=== PATIENT | male | born 1995 | race Caucasian/White ===

== ENCOUNTER 2024-01-31 01:20 | Emergency (ER) | payer OTHER, SELFPAY ==
[2024-01-31] VITALS (19 sets, daily range): BP systolic 100–147; BP diastolic 54–90; PULSE 90–119; RESP 6–23; TEMP 37.3; O2SAT 92–99; BMI 37.9
--- NOTE | 2024-01-31 01:35 | DI.RAD.S_ITS ---
PROCEDURE: XR CHEST 1V INDICATIONS: chest pain TECHNIQUE: One view of the chest was acquired. COMPARISON: None. FINDINGS: Surgical changes and devices: None. Lungs and pleura: Lungs are clear. No pleural effusions or pneumothorax. Mediastinum: Mediastinal contours appear normal. Heart size is normal. Bones and chest wall: No suspicious bony lesions. Overlying soft tissues appear unremarkable. IMPRESSION: No acute cardiopulmonary abnormality is seen. Dictated by: Mehdi Thomas M.D. on 01/31/2024 at 2:05 Approved by: Mehdi Thomas M.D. on 01/31/2024 at 2:05
--- NOTE | 2024-01-31 01:39 | EKG_ITS ---
[address] [address] Test Date: 2024-01-31 Pat Name: Harley Carranza Department: [facility] Room: Gender: Male [employer]: emanuel : 1995 Requested By: Order Number: [id number] Reading MD: Glenn Cortes MD Measurements Intervals [place] Rate: 118 P: 49 UT: 148 QRS: -1 QRSD: 80 T: 6 QT: 330 QTc: 462 Interpretive Statements Sinus tachycardia Minimal voltage criteria for LVH, may be normal variant ( R in aVL ) NO PRIOR TRACING Electronically Signed On 01-31-2024 7:45:45 PDT by Glenn Cortes MD
[2024-01-31 02:05] LABS: Add Manual Diff / Slide Review NO; Basophils Absolute Auto 100 /uL (0-100); Basophils Percent Auto 0.5 % (0-2); Eosinophils Absolute Auto 0 /uL (0-450); Eosinophils Percent Auto 0.3 % (2-4); Hemoglobin 14.4 g/dL (13.5-17.5); Lymphocytes Absolute Auto 2000 /uL (1100-4500); Lymphocytes Percent Auto 15.5 % (25-40); Mean Corpuscular HGB Conc 33.5 % (30-36); Mean Corpuscular Hemoglobin 30.8 PG (26-34); Monocytes Absolute Auto 900 /uL (0-900); Monocytes Percent Auto 6.8 % (3-14); Neutrophils Absolute Auto 10000 /uL (1500-7000); Neutrophils Percent Auto 76.9 % (50-75); Platelet Count 233 X10^3/uL (150-400); Red Blood Cell Count 4.67 X10^6/uL (4.5-5.9); Red Cell Distribution Width 13.1 % (11.6-14.8)
[2024-01-31 02:09] LABS: PTT Partial Thromboplastin Tim 28 SECONDS (25.1-36.5)
[2024-01-31 02:12] LABS: Alanine Aminotransferase 127 IU/L (<50); Albumin 4.6 g/dL (3.5-5.0); Albumin Globulin Ratio 1.6 (1.0-2.8); Alkaline Phosphatase 79 U/L (38-126); Aspartate Aminotransferase 61 IU/L (17-59); Bilirubin Total 0.6 mg/dL (0.2-1.3); Blood Urea Nitrogen 15 mg/dL (9-20); Calcium 9.6 mg/dL (8.4-10.2); Carbon Dioxide 28 mmol/L (22-32); Chloride 105 mmol/L (98-107); Creatine Kinase 58 U/L (55-170); Estimated Glomerular Filt Rate > 60 mL/min (>60); Globulin 2.9 g/dL (1.7-4.1); Glucose 126 mg/dL (70-100); HEMOLYSIS < 15 (0-50); Lipase 88 U/L (23-300); Magnesium 1.9 mg/dL (1.6-2.3); Potassium 3.9 mmol/L (3.4-5.1); Sodium 140 mmol/L (137-145); Total Protein 7.5 g/dL (6.3-8.2)
[2024-01-31 02:23] LABS: NT-proBNP (BNP-Adult 18+) < 20 pg/mL (<125); Troponin I < 0.012 ng/mL (0.01-0.034)
--- NOTE | 2024-01-31 03:49 | ED.CHESTPAIN ---
HPI - Chest Pain <Mandi Amanda DO - Last Filed: 02/01/24 03:46> General Chief Complaint: Chest Pain Stated Complaint: chest pain Time Seen by Provider: 01/31/24 03:41 Source: patient, RN notes reviewed and old records reviewed History of Present Illness HPI narrative: 28-year-old male no reported medical issues patient states he developed chest substernal but radiating to both sides of his chest 11:00 p.m. this evening, patient states he was just relaxing at his desk. Since then that is localized more to substernal. States it was worse lying down he tried lying on his belly as well as his back and side. Was little bit better being upright. Patient states never radiated to his arms, did briefly radiate to his back. Little bit towards his neck and onto his belly. No syncope or lightheadedness. States no numbness tingling or weakness. States does not feel short of breath currently but but does describe some pleuritic discomfort. No fevers, no cold cough or congestion. Had some mild nausea no vomiting. No diaphoresis. No issues with bowel movements or urination. No abdominal back or flank pain. No new swelling in extremities. Patient states he has not on any daily medications or have any other medical problems. Does note his liver enzymes have been slightly elevated chronically. Had an appendectomy 3 or 4 years ago. No known drug allergies. No tobacco, 1 alcoholic drink monthly, no recreational drugs. States his mom had sounds like a form of leukemia where she had elevated white cells and required chemotherapy. States some paternal family members have had cardiac issues but he is unsure of exact diagnosis or individual. Related Data Previous Rx's Medication Instructions Recorded ibuprofen 800 mg tablet 800 mg PO Q8H PRN pain #20 tabs 01/31/24 Allergies Allergy/AdvReac Type Severity Reaction Status Date / Time No Known Drug Allergies Allergy Verified 01/31/24 04:11 Review of Systems <Mandi Amanda DO - Last Filed: 02/01/24 03:46> Review of Systems ROS Unobtainable: All systems reviewed & are unremarkable except as noted in HPI and below Patient History <Mandi Amanda DO - Last Filed: 02/01/24 03:46> Social History Smoking Status: Never smoker Smoking Status: Never smoker Substance Use Type: does not use Exam <Mandi Amanda DO - Last Filed: 02/01/24 03:46> Narrative Exam Narrative: GENERAL: Alert and oriented x three, obese male in mild distress. HEENT: Head normocephalic, atraumatic, EOMI, pupils reactive, face symmetric, moist mucous membranes NECK: Supple, full range of motion CARDIOVASCULAR: Tachycardic but regular rate and rhythm without murmurs, rubs or gallops. No JVD. No edema bilateral lower extremities. RESPIRATORY: Breath sounds equal bilaterally, no wheezes rales or rhonchi. No tachypnea accessory muscle use. ABDOMEN: Soft, nontender. Normoactive bowel sounds all 4 quadrants. No guarding or rebound, rigidity, no mass : No CVA tenderness EXTREMITIES: Normal range of motion, no clubbing or edema. Neurovascularly intact NEUROLOGICAL: Cranial nerves II through XII grossly intact. Moving all extremities SKIN: Warm, dry, no petechiae, no rashes or lesions. Initial Vital Signs Initial Vital Signs: Vital Signs Pulse Rate 119 H 01/31/24 01:40 Respiratory Rate 22 01/31/24 01:40 Pulse Oximetry 96 01/31/24 01:40 <Blayne Nelson MD - Last Filed: 02/01/24 11:09> Initial Vital Signs Initial Vital Signs: Vital Signs Pulse Rate 119 H 01/31/24 01:40 Respiratory Rate 22 01/31/24 01:40 Pulse Oximetry 96 01/31/24 01:40 Course <Mandi Amanda DO - Last Filed: 02/01/24 03:46> Orders Ordered: Discontinued Medications Aspirin (Aspirin 81 Mg Chew Tab) 324 mg PO NOW ONE Stop: 01/31/24 01:36 Last Admin: 01/31/24 04:12 Dose: 324 mg Documented By: YAHAIRA Sodium Chloride (Normal Saline 0.9%) 1,000 mls @ 1,000 mls/hr IV BOLUS ONE Stop: 01/31/24 05:03 Last Infusion: 01/31/24 05:08 Dose: Infused Documented By: Admin: 01/31/24 04:12 Dose: 1,000 mls/hr Documented By: YAHAIRA Sodium Chloride (Normal Saline 0.9%) 1,000 mls @ 1,000 mls/hr IV BOLUS ONE Stop: 01/31/24 08:40 Last Infusion: 01/31/24 09:27 Dose: Infused Documented By: Admin: 01/31/24 07:55 Dose: 1,000 mls/hr Documented By: DIMA Ketorolac Tromethamine (Ketorolac 30 Mg/Ml Vial) 15 mg IV NOW ONE Stop: 01/31/24 05:24 Last Admin: 01/31/24 05:28 Dose: 15 mg Documented By: YAHAIRA Vital Signs Vital signs: Vital Signs - 8 hr 01/31/24 04:00 01/31/24 04:00 01/31/24 07:00 Pulse Rate 113 H 99 H Respiratory Rate 12 Blood Pressure 143/85 H Pulse Oximetry 96 93 Oxygen Delivery Method 01/31/24 07:30 01/31/24 07:44 01/31/24 07:44 Pulse Rate 111 H 101 H Respiratory Rate 23 19 Blood Pressure 108/68 Pulse Oximetry 97 95 Oxygen Delivery Method Room Air 01/31/24 08:00 01/31/24 08:00 01/31/24 08:30 Pulse Rate 98 H Respiratory Rate 16 Blood Pressure 109/68 105/68 Pulse Oximetry 95 Oxygen Delivery Method 01/31/24 08:30 01/31/24 09:00 01/31/24 09:00 Pulse Rate 90 97 H Respiratory Rate 15 13 Blood Pressure 113/71 Pulse Oximetry 93 96 Oxygen Delivery Method 01/31/24 10:06 Pulse Rate 97 H Respiratory Rate 12 Blood Pressure 100/57 L Pulse Oximetry 98 Oxygen Delivery Method Room Air <Blayne Nelson MD - Last Filed: 02/01/24 11:09> Orders Ordered: Discontinued Medications Aspirin (Aspirin 81 Mg Chew Tab) 324 mg PO NOW ONE Stop: 01/31/24 01:36 Last Admin: 01/31/24 04:12 Dose: 324 mg Documented By: YAHAIRA Sodium Chloride (Normal Saline 0.9%) 1,000 mls @ 1,000 mls/hr IV BOLUS ONE Stop: 01/31/24 05:03 Last Infusion: 01/31/24 05:08 Dose: Infused Documented By: Admin: 01/31/24 04:12 Dose: 1,000 mls/hr Documented By: YAHAIRA Sodium Chloride (Normal Saline 0.9%) 1,000 mls @ 1,000 mls/hr IV BOLUS ONE Stop: 01/31/24 08:40 Last Infusion: 01/31/24 09:27 Dose: Infused Documented By: Admin: 01/31/24 07:55 Dose: 1,000 mls/hr Documented By: DIMA Ketorolac Tromethamine (Ketorolac 30 Mg/Ml Vial) 15 mg IV NOW ONE Stop: 01/31/24 05:24 Last Admin: 01/31/24 05:28 Dose: 15 mg Documented By: YAHAIRA Vital Signs Vital signs: Vital Signs - 8 hr 01/31/24 04:00 01/31/24 04:00 01/31/24 07:00 Pulse Rate 113 H 99 H Respiratory Rate 12 Blood Pressure 143/85 H Pulse Oximetry 96 93 Oxygen Delivery Method 01/31/24 07:30 01/31/24 07:44 01/31/24 07:44 Pulse Rate 111 H 101 H Respiratory Rate 23 19 Blood Pressure 108/68 Pulse Oximetry 97 95 Oxygen Delivery Method Room Air 01/31/24 08:00 01/31/24 08:00 01/31/24 08:30 Pulse Rate 98 H Respiratory Rate 16 Blood Pressure 109/68 105/68 Pulse Oximetry 95 Oxygen Delivery Method 01/31/24 08:30 01/31/24 09:00 01/31/24 09:00 Pulse Rate 90 97 H Respiratory Rate 15 13 Blood Pressure 113/71 Pulse Oximetry 93 96 Oxygen Delivery Method 01/31/24 10:06 Pulse Rate 97 H Respiratory Rate 12 Blood Pressure 100/57 L Pulse Oximetry 98 Oxygen Delivery Method Room Air MDM - Chest Pain <Mandi Amanda, - Last Filed: 02/01/24 03:46> Lab Data 01/31/24 01:50 01/31/24 01:50 Labs: Lab Results 01/31/24 01/31/24 01/31/24 Range/Units 01:50 04:19 09:20 WBC 13.0 H (4.5-11.0) X10^3/uL RBC 4.67 (4.5-5.9) X10^6/uL Hgb 14.4 (13.5-17.5) g/dL Hct 43.0 (41-53) % MCV 92.0 (80-100) fL MCH 30.8 (26-34) PG MCHC 33.5 (30-36) % RDW 13.1 (11.6-14.8) % Plt Count 233 (150-400) X10^3/uL Neut % (Auto) 76.9 H (50-75) % Lymph % (Auto) 15.5 L (25-40) % [place] % (Auto) 6.8 (3-14) % Eos % (Auto) 0.3 L (2-4) % Baso % (Auto) 0.5 (0-2) % Neut # (Auto) 45304 H (0432-6792) /uL Lymph # (Auto) 2000 (5885-9758) /uL [place] # (Auto) 900 (0-900) /uL Eos # (Auto) 0 (0-450) /uL Baso # (Auto) 100 (0-100) /uL APTT 28 (25.1-36.5) SECONDS D-Dimer < 215 (<500) ng/ml Sodium 140 (137-145) mmol/L Potassium 3.9 (3.4-5.1) mmol/L Chloride 105 (98-107) mmol/L Carbon Dioxide 28 (22-32) mmol/L BUN 15 (9-20) mg/dL Creatinine 0.75 (0.66-1.25) mg/dL Estimated GFR > 60 (>60) mL/min BUN/Creatinine Ratio 20.0 (6-22) Glucose 126 H (70-100) mg/dL Calcium 9.6 (8.4-10.2) mg/dL Magnesium 1.9 (1.6-2.3) mg/dL Total Bilirubin 0.6 (0.2-1.3) mg/dL AST 61 H (17-59) IU/L ALT 127 H (<50) IU/L Alkaline Phosphatase 79 (38-126) U/L Total Creatine Kinase 58 (55-170) U/L Troponin I < 0.012 < 0.012 (0.01-0.034) ng/mL NT-Pro-B Natriuret Pep < 20 (<125) pg/mL Total Protein 7.5 (6.3-8.2) g/dL Albumin 4.6 (3.5-5.0) g/dL Globulin 2.9 (1.7-4.1) g/dL Albumin/Globulin Ratio 1.6 (1.0-2.8) Lipase 88 (23-300) U/L U Opiates 300ng/mL cut Negative (Negative) Ur Oxycodone Screen Negative (Negative) Urine Methadone Screen Negative (Negative) Ur Barbiturates Screen Negative (Negative) U Tricyclic Antidepress Negative (Negative) Ur Phencyclidine Scrn Negative (Negative) Ur Amphetamines Screen Negative (Negative) U Methamphetamines Scrn Negative (Negative) Ur MDMA Scrn (Ecstasy) Negative (Negative) U Benzodiazepines Scrn Negative (Negative) Urine Cocaine Screen Negative (Negative) U Marijuana (THC) Screen Negative (Negative) Urine pH Normal (Normal) Urine Specific [place] Normal (Normal) Ur Creatinine Normal (Normal) Imaging Data Chest x-ray: Radiologist's Impression: [address] [address] XRay Report Signed Patient: Harley Samuels MR#: [id number] : 1995 Acct:[id number] Age/Sex: 28 / M Date of Service: 01/31/24 Loc: ED Accession Number: [id number] Procedure: XR chest 1V Ordering Provider: Mandi Amanda D.O. PROCEDURE: XR CHEST 1V INDICATIONS: chest pain TECHNIQUE: One view of the chest was acquired. COMPARISON: None. FINDINGS: Surgical changes and devices: None. Lungs and pleura: Lungs are clear. No pleural effusions or pneumothorax. Mediastinum: Mediastinal contours appear normal. Heart size is normal. Bones and chest wall: No suspicious bony lesions. Overlying soft tissues appear unremarkable. IMPRESSION: No acute cardiopulmonary abnormality is seen. Dictated by: Mehdi Thomas M.D. on 01/31/2024 at 2:05 Approved by: Mehdi Thomas M.D. on 01/31/2024 at 2:05 ECG Data Attestation: I personally reviewed and interpreted this ECG as follows: Prior ECG tracings: not available for review Interpretation: EKG shows sinus tach rate of 118 MA 148 QRS 80 QTC of 462.? Patient has a M5S2-H5, not a S1 Q3 T3 on EKG. No acute ST elevation depression noted. No priors for comparison. EKG 2. Sinus tach rate of 105 MA 148 QRS 88 QTC of 446. No acute ST elevation Q 1, S3-T3 but no other acute elevation. Patient does have a Q in 1 aVL but no elevation. No diffuse MA changes appreciated. MDM Narrative Medical decision making narrative: 28 old male presents with complaint of chest pain sudden onset this evening, patient notes a little bit of pleuritic sensation was bilateral lungs now more localized substernally. Was little bit worse lying down. Patient states more intense lying on his belly then on his back but was better right. Patient denies any recent swelling in extremities. Vitals patient is noted to be persistently tachycardic here in the department no hypotension no hypoxia, no tachypnea. Patient's lungs are clear on examination he is slightly tachycardic. Labs show white count of 13 hemoglobin of 14.4 platelets of 233. Sodium is 140 potassium 3.9 chloride 105 CO2 of 28 BUN 15 creatinine 0.75 glucose is 126 calcium 9.6 Mag 1.9, bilirubin is 0.6 AST 61 with a ALT of 127 alk-phos is 79 with a lipase 88. Troponins less than 0.012. BNP is less than 20. Repeat troponin is less than 0.012 drug screen negative Chest x-ray shows no acute changes. EKG shows sinus tach rate of 118 MA 148 QRS 80 QTC of 462. [id number], no acute ST elevation depression noted. No diffuse MA changes. Repeat EKG shows sinus tach no acute EKG changes otherwise. 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 This shows no central or segmental pulmonary embolism aortic dissection or aneurysm mosaic attenuation of lung parenchyma can be sitting in set him reactive airway disease no pulmonary nodular infiltrate. Upper abdomen demonstrates small hiatal hernia, hepatic steatosis. No lytic or sclerotic osseous lesions identified. No pericardial effusion. No pleural effusion. Patient's tachycardia has slowly improved but not resolved here department despite. States his chest pain has improved. Patient's workup does not show any acute cardiac event, no congestive heart failure, patient does not have appear infiltrate or pneumonia does have a little bit of mosaic attenuation could be reactive airway disease versus interstitial change. Patient has not had any recent upper respiratory infections that he is aware. Patient does have a mild white count, afebrile, slightly tachycardic, he is well-appearing able to ambulate without issues. Pericarditis would be in the differential as well although no diffuse MA changes on EKG. Spoke with Dr. Cazares cardiology for [facility], recommends ECHO. Echo ordered. Patient signed out to Dr. Nelson. 7:00 a.m.. Omar: Sign out from Dr Amanda, patient's case has been discussed with Cardiology. Two EKGs and [address] negative for PE. Echocardiogram is recommended and pending. Tachycardia noted. But patient is responding to IV fluids. Patient has pleuritic and reproducible substernal chest discomfort with leaning forward and back. 7:45 a.m.. Echocardiogram survey technician is here at bedside. Patient states he thinks he has been keeping hydrated but he does drink a lot of tea. Currently no chest pain. He does understand agree with treatment plan. Echocardiogram will take a couple hours to be resulted. 9:47 a.m.. No chest pain at this time with leaning forward and back. Does have slight discomfort with deep breath.. He states he is feeling much better after IV fluids. Reviewed some likely pleurisy. Examined results are reassuring at this time. Explained to him about pleurisy diagnosis Heart rate has improved with normal saline. Heart rate 97. Awaiting for results of echocardiogram. 11:32 a.m.. Updated patient results and echocardiogram. Resting comfortably. Pain is controlled. Nontoxic at discharge. Primary care clinic provided. Patient may take ibuprofen for pain. He did have improvement Toradol. Patient states he does have a family doctor with a [employer]. To follow up with Discussion: Appropriate for discharge home. Exam is reassuring. Patient has reproducible chest discomfort with leaning forward back and deep breath. Multiple radiographs CT chest x-ray and echocardiogram are reassuring. Two EKGs and 2 troponins are reassuring. Patient has low heart risk factors. Return precautions reviewed patient. Not toxic at discharge. He desires discharge home. Diagnosis pleurisy <Blayne Nelson MD - Last Filed: 02/01/24 11:09> Lab Data Labs: Lab Results 01/31/24 01/31/24 01/31/24 Range/Units 01:50 04:19 09:20 WBC 13.0 H (4.5-11.0) X10^3/uL RBC 4.67 (4.5-5.9) X10^6/uL Hgb 14.4 (13.5-17.5) g/dL Hct 43.0 (41-53) % MCV 92.0 (80-100) fL MCH 30.8 (26-34) PG MCHC 33.5 (30-36) % RDW 13.1 (11.6-14.8) % Plt Count 233 (150-400) X10^3/uL Neut % (Auto) 76.9 H (50-75) % Lymph % (Auto) 15.5 L (25-40) % [place] % (Auto) 6.8 (3-14) % Eos % (Auto) 0.3 L (2-4) % Baso % (Auto) 0.5 (0-2) % Neut # (Auto) 23109 H (6910-6603) /uL Lymph # (Auto) 2000 (5566-7974) /uL [place] # (Auto) 900 (0-900) /uL Eos # (Auto) 0 (0-450) /uL Baso # (Auto) 100 (0-100) /uL APTT 28 (25.1-36.5) SECONDS D-Dimer < 215 (<500) ng/ml Sodium 140 (137-145) mmol/L Potassium 3.9 (3.4-5.1) mmol/L Chloride 105 (98-107) mmol/L Carbon Dioxide 28 (22-32) mmol/L BUN 15 (9-20) mg/dL Creatinine 0.75 (0.66-1.25) mg/dL Estimated GFR > 60 (>60) mL/min BUN/Creatinine Ratio 20.0 (6-22) Glucose 126 H (70-100) mg/dL Calcium 9.6 (8.4-10.2) mg/dL Magnesium 1.9 (1.6-2.3) mg/dL Total Bilirubin 0.6 (0.2-1.3) mg/dL AST 61 H (17-59) IU/L ALT 127 H (<50) IU/L Alkaline Phosphatase 79 (38-126) U/L Total Creatine Kinase 58 (55-170) U/L Troponin I < 0.012 < 0.012 (0.01-0.034) ng/mL NT-Pro-B Natriuret Pep < 20 (<125) pg/mL Total Protein 7.5 (6.3-8.2) g/dL Albumin 4.6 (3.5-5.0) g/dL Globulin 2.9 (1.7-4.1) g/dL Albumin/Globulin Ratio 1.6 (1.0-2.8) Lipase 88 (23-300) U/L U Opiates 300ng/mL cut Negative (Negative) Ur Oxycodone Screen Negative (Negative) Urine Methadone Screen Negative (Negative) Ur Barbiturates Screen Negative (Negative) U Tricyclic Antidepress Negative (Negative) Ur Phencyclidine Scrn Negative (Negative) Ur Amphetamines Screen Negative (Negative) U Methamphetamines Scrn Negative (Negative) Ur MDMA Scrn (Ecstasy) Negative (Negative) U Benzodiazepines Scrn Negative (Negative) Urine Cocaine Screen Negative (Negative) U Marijuana (THC) Screen Negative (Negative) Urine pH Normal (Normal) Urine Specific [place] Normal (Normal) Ur Creatinine Normal (Normal) Imaging Data Echocardiogram: Radiologist's Impression: [address] [address] Echocardiography Report Signed Patient: Harley Samuels MR#: [id number] : 1995 Acct:[id number] Age/Sex: 28 / M Date of Service: 01/31/24 Loc: ED Accession Number: [id number] Procedure: EC echo complete with contrast Ordering Provider: Mandi Amanda D.O. [place] +---------+ Hospital : : [address] [place] [address]. : : [place], [place] : : [address] : : Phone: [phone] Echocardiogram Report + + :Name: HARLEY SAMUELS Study Date: 01/31/2024 Height: 66 in : :Hospital ReadingLocation: Weight: 235 lb : : Gender: Male BSA: 2.1 m2 : :: 1995 Age: 28 yrs BP: 143/85 mmHg: :Reason For Study: CHEST PAIN : :Ordering Physician: VASILIY, : :MANDI Performed By: Rafa See : :Referring: MANDI AMANDA : + + Interpretation Summary This is a technically difficult study characterized by limited endocardial visualization particularly on apical views. It was enhanced with Definity echo contrast. Normal sinus rhythm. Normal LV size and wall thickness. Normal wall motion and LV systolic function. Ejection fraction is 55-60%. Normal chamber sizes. There are no significant valvular abnormalities. There is no prior study available for comparison. Procedure: A two-dimensional transthoracic echocardiogram with color flow and Doppler was performed. The study quality was technically difficult. A contrast injection of Definity was performed to improve assessment of LV function. There is no prior echocardiogram noted for this patient. The heart rate ranged between 95-103 bpm during the study. Left Ventricle: The left ventricle is normal in size and wall thickness. The ejection fraction is estimated to be 55-60%. Right Ventricle: The right ventricle is not well visualized. Atria: The left atrial size is normal. Right atrium not well visualized. The interatrial septum grossly appears intact with no obvious evidence for an atrial septal defect. Mitral Valve: The mitral valve is normal. There is no mitral valve stenosis. There is no mitral regurgitation noted. Aortic Valve: The aortic valve is trileaflet. There is no aortic valve stenosis. No aortic regurgitation is present. Tricuspid Valve: The tricuspid valve is not well visualized, but is grossly normal. There is no tricuspid stenosis. There is a trace or physiologic amount of tricuspid regurgitation. Pulmonic Valve: The pulmonic valve is not well visualized. There is no pulmonic valvular stenosis. There is no pulmonic valvular regurgitation. Great Vessels: The aortic root is normal size. The dimensions of the ascending aorta are normal. The inferior vena cava was not visualized. Pericardium/ Pleura There is no pericardial effusion. There is no pleural effusion. MMode/2D Measurements & Calculations LVIDd: 4.5 cm LVOT diam: 2.1 cm LVIDs: 3.0 cm Ao root diam: 2.9 cm FS: 32.4 % asc Aorta Diam: 2.6 cm IVSd: 1.0 cm LVPWd: 0.94 cm LV laird. diameter/BSA (cm/m^2): 2.1 LV sys. diameter/BSA (cm/m^2): 1.4 LA A2 area: 13.7 cm2 LA A4 area: 12.3 cm2 LA length (vol): 4.6 cm LA vol: 30.8 ml LA vol index: 14.4 ml/m2 Doppler Measurements & Calculations Ao V2 max: 121.5 cm/sec LVOT Max Leonid: 87.5 cm/sec Ao V2 mean: 80.7 cm/sec LV V1 max P.1 mmHg Ao max P.9 mmHg LV V1 VTI: 17.9 cm Ao mean P.1 mmHg MYRANDA(I,D): 3.2 cm2 Ao V2 VTI: 19.7 cm MYRANDA(V,D): 2.5 cm2 sev ratio: 0.91 MYRANDA indexed to BSA (cm^2/m^2): 1.5 MV E max leonid: 82.1 cm/sec TR max leonid: 229.2 cm/sec MV A max leonid: 60.6 cm/sec TR max P.0 mmHg MV E/A: 1.4 PA V2 max: 121.2 cm/sec Med Peak E' Leonid: 9.1 cm/sec PA V2 mean: 83.0 cm/sec E/E' med: 9.0 PA mean P.1 mmHg Lat Peak E' Leonid: 7.5 cm/sec PA pr(Accel): 44.7 mmHg E/E' lat: 11.0 E/e' average: 10.0 MV dec time: 0.10 sec SV(LVOT): 62.9 ml Electronically signed by: Carline Fajardo M.D. on Reading Physician:01/31/2024 11:[address] scan - chest: Radiologist's Impression: [place] [address] CT Scan Report Signed Patient: Harley Samuels MR#: [id number] : 1995 Acct:[id number] Age/Sex: 28 / M Date of Service: 01/31/24 Loc: ED Accession Number: [id number] Procedure: CT angio chest PE protocol Ordering Provider: Mandi Amanda D.O. PROCEDURE: CT ANGIO CHEST PE PROTOCOL INDICATIONS: chest pain, pleuritic, tachy TECHNIQUE: After the administration of intravenous contrast, 2 mm thick sections acquired from the pulmonary apices to the posterior costophrenic angles. 3-dimensional maximum intensity projection (MIP) coronal and sagittal reformats were then acquired through the thorax. For radiation dose reduction, the following was used: automated exposure control, adjustment of mA and/or kV according to patient size. COMPARISON: None. FINDINGS: Image quality: Diagnostic. Pulmonary arteries: Pulmonary arteries are normal in size, and demonstrate no intraluminal filling defects to suggest central pulmonary embolism. Lower Neck: No enlarged lymph nodes. Thyroid: No thyroid nodules which require sonographic follow up, per consensus guidelines. Axillae: No enlarged lymph nodes. Chest Wall: Unremarkable. Bones: Unremarkable. Lungs and Pleura: No pneumothorax or pleural effusions. Subtle ground-glass opacities bilaterally are nonspecific, most likely secondary to submaximal inspiration. No airspace consolidation. Heart: Heart size is normal. No pericardial effusion. Thoracic Vessels: No aortic aneurysm. Mediastinum and [place]: No enlarged lymph nodes. Esophagus: No wall thickening. Small hiatal hernia. Upper Abdomen: Visualized upper abdomen solid organs and bowel loops appear normal. IMPRESSION: No pulmonary embolus. No acute cardiopulmonary process. Comment: Final report is concordant with preliminary interpretation provided by [facility]. Dictated by: Amado Castro M.D. on 01/31/2024 at 7:59 Approved by: Amado Castro M.D. on 01/31/2024 at 8:02 [facility] Narrative Medical decision making narrative: 28 old male presents with complaint of chest pain sudden onset this evening, patient notes a little bit of pleuritic sensation was bilateral lungs now more localized substernally. Was little bit worse lying down. Patient states more intense lying on his belly then on his back but was better right. Patient denies any recent swelling in extremities. Vitals patient is noted to be persistently tachycardic here in the department no hypotension no hypoxia, no tachypnea. Patient's lungs are clear on examination he is slightly tachycardic. Labs show white count of 13 hemoglobin of 14.4 platelets of 233. Sodium is 140 potassium 3.9 chloride 105 CO2 of 28 BUN 15 creatinine 0.75 glucose is 126 calcium 9.6 Mag 1.9, bilirubin is 0.6 AST 61 with a ALT of 127 alk-phos is 79 with a lipase 88. Troponins less than 0.012. BNP is less than 20. Repeat troponin is less than 0.012 drug screen negative Chest x-ray shows no acute changes. EKG shows sinus tach rate of 118 MA 148 QRS 80 QTC of 462. D1B2-B4, no acute ST elevation depression noted. No diffuse MA changes. Repeat EKG shows sinus tach no acute EKG changes otherwise. 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 This shows no central or segmental pulmonary embolism aortic dissection or aneurysm mosaic attenuation of lung parenchyma can be sitting in set him reactive airway disease no pulmonary nodular infiltrate. Upper abdomen demonstrates small hiatal hernia, hepatic steatosis. No lytic or sclerotic osseous lesions identified. No pericardial effusion. No pleural effusion. Patient's tachycardia has slowly improved but not resolved here department despite. States his chest pain has improved. Patient's workup does not show any acute cardiac event, no congestive heart failure, patient does not have appear infiltrate or pneumonia does have a little bit of mosaic attenuation could be reactive airway disease versus interstitial change. Patient has not had any recent upper respiratory infections that he is aware. Patient does have a mild white count, afebrile, slightly tachycardic, he is well-appearing able to ambulate without issues. Pericarditis would be in the differential as well although no diffuse MA changes on EKG. Spoke with Dr. Cazares cardiology for [place], recommends ECHO. Patient signed out to Dr. Nelson. 7:00 a.m.. Omar: Sign out from Dr Amanda, patient's case has been discussed with Cardiology. Two EKGs and [address] negative for PE. Echocardiogram is recommended and pending. Tachycardia noted. But patient is responding to IV fluids. Patient has pleuritic and reproducible substernal chest discomfort with leaning forward and back. 7:45 a.m.. Echocardiogram survey technician is here at bedside. Patient states he thinks he has been keeping hydrated but he does drink a lot of tea. Currently no chest pain. He does understand agree with treatment plan. Echocardiogram will take a couple hours to be resulted. 9:47 a.m.. No chest pain at this time with leaning forward and back. Does have slight discomfort with deep breath.. He states he is feeling much better after IV fluids. Reviewed some likely pleurisy. Examined results are reassuring at this time. Explained to him about pleurisy diagnosis Heart rate has improved with normal saline. Heart rate 97. Awaiting for results of echocardiogram. 11:32 a.m.. Updated patient results and echocardiogram. Resting comfortably. Pain is controlled. Nontoxic at discharge. Primary care clinic provided. Patient may take ibuprofen for pain. He did have improvement Toradol. Patient states he does have a family doctor with a [employer]. To follow up with Discussion: Appropriate for discharge home. Exam is reassuring. Patient has reproducible chest discomfort with leaning forward back and deep breath. Multiple radiographs CT chest x-ray and echocardiogram are reassuring. Two EKGs and 2 troponins are reassuring. Patient has low heart risk factors. Return precautions reviewed patient. Not toxic at discharge. He desires discharge home. Diagnosis pleurisy Discharge Plan Departure Patient Disposition: Home Clinical Impression: Tachycardia, Pleurisy Chest pain Qualifiers: Chest pain type: unspecified Qualified Code(s): R07.9 - Chest pain, unspecified Instructions: DI for Pleurisy, DI for Chest Pain Activity Restrictions/Additional Instructions: Your exam and laboratory studies imaging studies and echocardiogram are reassuring. You likely have pleurisy. This is self-limiting and will improve with time. Ibuprofen has been prescribed for you. Please see family doctor within a week for re-evaluation. Return if worse if any questions or concerns. Prescriptions: New ibuprofen 800 mg tablet 800 mg PO Q8H PRN (Reason: pain) Qty: 20 0RF Referrals: ProviderShireen [Primary Care Provider] - Stand Alone Forms: Patient Portal/API, Work Release Note
[2024-01-31 04:05] LABS: D Dimer < 215 ng/ml (<500)
--- NOTE | 2024-01-31 04:09 | DI.CT.S_ITS ---
PROCEDURE: CT ANGIO CHEST PE PROTOCOL INDICATIONS: chest pain, pleuritic, tachy TECHNIQUE: After the administration of intravenous contrast, 2 mm thick sections acquired from the pulmonary apices to the posterior costophrenic angles. 3-dimensional maximum intensity projection (MIP) coronal and sagittal reformats were then acquired through the thorax. For radiation dose reduction, the following was used: automated exposure control, adjustment of mA and/or kV according to patient size. COMPARISON: None. FINDINGS: Image quality: Diagnostic. Pulmonary arteries: Pulmonary arteries are normal in size, and demonstrate no intraluminal filling defects to suggest central pulmonary embolism. Lower Neck: No enlarged lymph nodes. Thyroid: No thyroid nodules which require sonographic follow up, per consensus guidelines. Axillae: No enlarged lymph nodes. Chest Wall: Unremarkable. Bones: Unremarkable. Lungs and Pleura: No pneumothorax or pleural effusions. Subtle ground-glass opacities bilaterally are nonspecific, most likely secondary to submaximal inspiration. No airspace consolidation. Heart: Heart size is normal. No pericardial effusion. Thoracic Vessels: No aortic aneurysm. Mediastinum and Leny: No enlarged lymph nodes. Esophagus: No wall thickening. Small hiatal hernia. Upper Abdomen: Visualized upper abdomen solid organs and bowel loops appear normal. IMPRESSION: No pulmonary embolus. No acute cardiopulmonary process. Comment: Final report is concordant with preliminary interpretation provided by [facility]. Dictated by: Amado Castro M.D. on 01/31/2024 at 7:59 Approved by: Amado Castro M.D. on 01/31/2024 at 8:02
[2024-01-31] MEDS: SODIUM CHLORIDE 0.9% 1,000 ML 1000 ML IV ×2 (04:12→07:55)
[2024-01-31] MEDS: ASPIRIN 81 MG CHEW TAB 324 MG PO (04:12)
--- NOTE | 2024-01-31 04:37 | EKG_ITS ---
[address] [address] Test Date: 2024-01-31 Pat Name: Harley Carranza Department: Room: Gender: Male [employer]: ASIM : 1995 Requested By: Order Number: [id number] Reading MD: Glenn Cortes MD Measurements Intervals [place] Rate: 105 P: 57 W[place]: 148 QRS: 0 QRSD: 88 T: 9 QT: 338 QTc: 446 Interpretive Statements Sinus tachycardia Minimal voltage criteria for LVH, may be normal variant ( R in aVL ) NO SIGNIFICANT CHANGE FROM PRIOR TRACING Electronically Signed On 01-31-2024 7:45:52 PDT by Glenn Cortes MD
[2024-01-31 04:47] LABS: Troponin I < 0.012 ng/mL (0.01-0.034)
[2024-01-31] MEDS: KETOROLAC 30 MG/ML VIAL 15 MG IV (05:28)
--- NOTE | 2024-01-31 06:40 | DI.ECHO.S_ITS ---
[facility] +---------+ [facility] : : [address] : : [place] : : [id number] : : Phone: [phone] Echocardiogram Report + + :Name: DAO SAMUELS Study Date: 01/31/2024 Height: 66 in : :Hospital ReadingLocation: Weight: 235 lb : : Gender: Male BSA: 2.1 m2 : :: 1995 Age: 28 yrs BP: 143/85 mmHg: :Reason For Study: CHEST PAIN : :Ordering Physician: VASILIY, : :RAJI Performed By: Rafa See : :Referring: RAJI AMANDA : + + Interpretation Summary This is a technically difficult study characterized by limited endocardial visualization particularly on apical views. It was enhanced with Definity echo contrast. Normal sinus rhythm. Normal LV size and wall thickness. Normal wall motion and LV systolic function. Ejection fraction is 55-60%. Normal chamber sizes. There are no significant valvular abnormalities. There is no prior study available for comparison. Procedure: A two-dimensional transthoracic echocardiogram with color flow and Doppler was performed. The study quality was technically difficult. A contrast injection of Definity was performed to improve assessment of LV function. There is no prior echocardiogram noted for this patient. The heart rate ranged between 95-103 bpm during the study. Left Ventricle: The left ventricle is normal in size and wall thickness. The ejection fraction is estimated to be 55-60%. Right Ventricle: The right ventricle is not well visualized. Atria: The left atrial size is normal. Right atrium not well visualized. The interatrial septum grossly appears intact with no obvious evidence for an atrial septal defect. Mitral Valve: The mitral valve is normal. There is no mitral valve stenosis. There is no mitral regurgitation noted. Aortic Valve: The aortic valve is trileaflet. There is no aortic valve stenosis. No aortic regurgitation is present. Tricuspid Valve: The tricuspid valve is not well visualized, but is grossly normal. There is no tricuspid stenosis. There is a trace or physiologic amount of tricuspid regurgitation. Pulmonic Valve: The pulmonic valve is not well visualized. There is no pulmonic valvular stenosis. There is no pulmonic valvular regurgitation. Great Vessels: The aortic root is normal size. The dimensions of the ascending aorta are normal. The inferior vena cava was not visualized. Pericardium/ Pleura There is no pericardial effusion. There is no pleural effusion. MMode/2D Measurements & Calculations LVIDd: 4.5 cm LVOT diam: 2.1 cm LVIDs: 3.0 cm Ao root diam: 2.9 cm FS: 32.4 % asc Aorta Diam: 2.6 cm IVSd: 1.0 cm LVPWd: 0.94 cm LV laird. diameter/BSA (cm/m^2): 2.1 LV sys. diameter/BSA (cm/m^2): 1.4 LA A2 area: 13.7 cm2 LA A4 area: 12.3 cm2 LA length (vol): 4.6 cm LA vol: 30.8 ml LA vol index: 14.4 ml/m2 Doppler Measurements & Calculations Ao V2 max: 121.5 cm/sec LVOT Max Leonid: 87.5 cm/sec Ao V2 mean: 80.7 cm/sec LV V1 max P.1 mmHg Ao max P.9 mmHg LV V1 VTI: 17.9 cm Ao mean P.1 mmHg MYRANDA(I,D): 3.2 cm2 Ao V2 VTI: 19.7 cm MYRANDA(V,D): 2.5 cm2 sev ratio: 0.91 MYRANDA indexed to BSA (cm^2/m^2): 1.5 MV E max leonid: 82.1 cm/sec TR max leonid: 229.2 cm/sec MV A max leonid: 60.6 cm/sec TR max P.0 mmHg MV E/A: 1.4 PA V2 max: 121.2 cm/sec Med Peak E' Leonid: 9.1 cm/sec PA V2 mean: 83.0 cm/sec E/E' med: 9.0 PA mean P.1 mmHg Lat Peak E' Leonid: 7.5 cm/sec PA pr(Accel): 44.7 mmHg E/E' lat: 11.0 E/e' average: 10.0 MV dec time: 0.10 sec SV(LVOT): 62.9 ml Electronically signed by: Carline Fajardo M.D. on Reading Physician:01/31/2024 11:12 AM
[2024-01-31 09:32] LABS: UR Morphine/Opiate cutoff 300 Negative (Negative); Ur Creatinine Normal (Normal); Ur Specific Gravity Normal (Normal); Urine Amphetamines Negative (Negative); Urine Barbiturates Negative (Negative); Urine Benzodiazepines Negative (Negative); Urine Cocaine Negative (Negative); Urine MDMA Negative (Negative); Urine Methadone Negative (Negative); Urine Methamphetamines Negative (Negative); Urine Oxycodone Negative (Negative); Urine Phencyclidine Negative (Negative); Urine Tetrahydrocannabinol Negative (Negative); Urine Tricyclic Antidepressant Negative (Negative); Urine pH Normal (Normal)
== END 2024-01-31 11:45 | disposition home or self-care (01) ==
PROVIDERS: Emergency Medicine; Emergency Provider Emergency Medicine
DX: R07.9 Chest pain, unspecified (principal); R00.0 Tachycardia, unspecified; R09.1 Pleurisy
CPT/HCPCS: 36415; 71045; 71275; 80053; 80305; 82550; 83690; 83735; 83880; 84484; 85025; 85379; 85730; 93005; 96361; 96374; 99284; C8929; J1885; Q9957; Q9967